=== PATIENT | male | born 1965 | race Caucasian/White ===

== ENCOUNTER 2017-08-17 08:35 | Emergency (ER) | payer MEDICAID ==
[2017-08-17 08:35] VITALS: BMI 29.1
[2017-08-17 08:43] VITALS: TEMP 97.9
--- NOTE | 2017-08-17 09:01 | ED PDOC ---
Arrival/HPI - General Chief Complaint: Back Pain Time Seen by Provider: 08/17/17 08:52 Historian: Patient - History of Present Illness Narrative History of Present Illness (Text): 08/17/17 09:00 Aquiles Bravo is a 52 year old male, who presents to the emergency department complaining of right upper back pain since three days ago. Patient reports pain is sharp and worse when taking deep breaths. 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 Patient denies chest pain, shortness of breath, nausea, vomiting, fever, dysuria, or other complaints. Time/Duration: < week (3 days) Symptom Onset: Sudden Symptom Course: Unchanged Quality: Other (sharp) Activities at Onset: Light Past Medical History - Provider Review Nursing Documentation Reviewed: Yes - Psychiatric Hx Depression: No Hx Emotional Abuse: No Hx Physical Abuse: No Hx Substance Use: No - Surgical History Hx Musculoskeletal Surgery: Yes (right knee) - Suicidal Assessment Feels Threatened In Home Enviroment: No Family/Social History - Physician Review Nursing Documentation Reviewed: Yes Family/Social History: Unknown Family HX Smoking Status: Heavy Smoker > 10 Cigarettes Daily Hx Alcohol Use: Yes (occassionally) Frequency of alcohol use: Socially Hx Substance Use: No Hx Substance Use Treatment: No Allergies/Home Meds Allergies/Adverse Reactions: Allergies No Known Allergies Allergy (Verified 08/17/17 08:43) Review of Systems - Review of Systems Constitutional: absent: Fevers Respiratory: absent: SOB Cardiovascular: absent: Chest Pain Gastrointestinal: absent: Abdominal Pain, Vomiting Genitourinary Male: absent: Dysuria Musculoskeletal: Back Pain (right upper back ) Skin: absent: Rash Neurological: absent: Headache Physical Exam Vital Signs Reviewed: Yes Vital Signs Temp Pulse Resp BP Pulse Ox 08/17/17 10:36 72 18 127/78 98 08/17/17 09:46 65 17 130/80 98 08/17/17 08:43 97.9 F 62 18 128/78 97 Temperature: Afebrile Blood Pressure: Normal Pulse: Regular Respiratory Rate: Normal Appearance: Positive for: Well-Appearing, Non-Toxic, Comfortable Pain Distress: None Mental Status: Positive for: Alert and Oriented X 3 - Systems Exam Head: Present: Atraumatic, Normocephalic Pupils: Present: PERRL Extroacular Muscles: Present: EOMI Conjunctiva: Present: Normal Mouth: Present: Moist Mucous Membranes Neck: Present: Normal Range of Motion. No: MIDLINE TENDERNESS, Paraspinal Tenderness Respiratory/Chest: Present: Clear to Auscultation, Good Air Exchange. No: Respiratory Distress, Accessory Muscle Use, Wheezes, Rales, Retracting, Rhonchi Cardiovascular: Present: Regular Rate and Rhythm, Normal S1, S2. No: Murmurs Back: Present: Paraspinal Tenderness (right sided parathoracic tenderness) Upper Extremity: Present: Normal Inspection, Normal ROM, NORMAL PULSES, Neurovascularly Intact, Capillary Refill < 2s. No: Cyanosis, Edema, Tenderness , Swelling, Erythema, Deformity Neurological: Present: GCS=15, CN II-XII Intact, Speech Normal Skin: Present: Warm, Dry, Normal Color. No: Rashes Psychiatric: Present: Alert, Oriented x 3, Normal Insight, Normal Concentration Medical Decision Making ED Course and Treatment: 08/17/17 Impression: 52 year old male with right sided parathoracic tenderness complaining of sharp right upper back pain. pleuritc complonent consider msk pain vs pe. Plan: -- Labs -- Toradol -- Reassess and disposition Progress Notes: 08/17/17 09:55 Chest X-ray: Creator : Lane Zapata MD FINDINGS: LUNGS: No active pulmonary disease. PLEURA: No significant pleural effusion identified. No pneumothorax apparent. CARDIOVASCULAR: Normal. OSSEOUS STRUCTURES: No significant abnormalities. VISUALIZED UPPER ABDOMEN: Normal. OTHER FINDINGS: None. IMPRESSION: No active disease. 08/17/17 13:51 labs cxr neg. pt speaking full sentences lung clear. no res distresss. advise outpt fu and return precautions. - Lab Interpretations Lab Results: 08/17/17 09:10 08/17/17 09:10 Lab Results 08/17/17 09:10: Sodium 144, Potassium 4.8, Chloride 106, Carbon Dioxide 27, Anion Gap 15, BUN 16, Creatinine 0.8, Est GFR ( Amer) > 60, Est GFR (Non- Af Amer) > 60, Random Glucose 113 H, Calcium 9.9, Total Bilirubin 0.5, AST 38, ALT 50, Alkaline Phosphatase 87, Total Protein 7.3, Albumin 4.3, Globulin 3.0, Albumin/Globulin Ratio 1.4 08/17/17 09:10: PT 11.1, INR 0.97, APTT 32.1, D-Dimer, Quantitative < 200 08/17/17 09:10: WBC 10.7, RBC 4.82, Hgb 15.2, Hct 45.1, MCV 93.6, MCH 31.5, MCHC 33.7, RDW 13.7, Plt Count 240, MPV 11.5 H, Gran % 55.2, Lymph % (Auto) 30.6 , [place] % (Auto) 10.4 H, Eos % (Auto) 3.5, Baso % (Auto) 0.3, Gran # 5.92, Lymph # (Auto) 3.3, [place] # (Auto) 1.1 H, Eos # (Auto) 0.4, Baso # (Auto) 0.03 I have reviewed the lab results: Yes - RAD Interpretation Radiology Orders: 08/17/17 09:01 CXR [CHEST TWO VIEWS (PA/LAT)] [RAD] Stat Diamond Finishing Supervisor: Radiologist - Medication Orders Current Medication Orders: Discontinued Medications Ketorolac Tromethamine (Toradol) 30 mg IVP STAT STA Stop: 08/17/17 09:01 Last Admin: 08/17/17 09:52 Dose: 30 mg [facility] Pain Assessment Document 08/17/17 09:52 SF (Rec: 08/17/17 09:52 [id number]) Pain Reassessment Is this a pain reassessment? Yes Sleep Is patient sleeping during reassessment? No Presence of Pain Presence of Pain Yes Pain Scale Used Pain Scale Used Numeric IVP Administration Document 08/17/17 09:52 SF (Rec: 08/17/17 09:52 [id number]) Charges for Administration # of IVP Administrations 1 - Scribe Statement The provider has reviewed the documentation as recorded by the Annabella Farley Provider Scribe Attestation: All medical record entries made by the Scribe were at my direction and personally dictated by me. I have reviewed the chart and agree that the record accurately reflects my personal performance of the history, physical exam, medical decision making, and the department course for this patient. I have also personally directed, reviewed, and agree with the discharge instructions and disposition. Disposition/Present on Arrival - Present on Arrival Any Indicators Present on Arrival: No History of DVT/PE: No History of Uncontrolled Diabetes: No Urinary Catheter: No History of Decub. Ulcer: No History Surgical Site Infection Following: None - Disposition Have Diagnosis and Disposition been Completed?: Yes Diagnosis: Back pain Disposition: HOME/ ROUTINE Disposition Time: 10:00 Condition: STABLE Discharge Instructions (ExitCare): Upper Back Pain Additional Instructions: follow up with your doctor/specialist. return to e rwith worsening symptoms or concerns. Prescriptions: Cyclobenzaprine [Cyclobenzaprine HCl] 10 mg PO DAILY PRN #10 tab PRN Reason: Muscle Spasm Naproxen [Naprosyn] 500 mg PO BID PRN #14 tablet PRN Reason: Pain, Mild (1-3) Referrals: [facility], [Non-Staff] - Follow up with primary Visco,Sergei Celeste MD [Staff Provider] - Follow up with primary Forms: [employer] ([place]i), WORK NOTE
[2017-08-17 09:22] LABS: BASO # 0.03 K/mm3 (0.0-2.0); BASO % 0.3 % (0.0-3.0); EOS # 0.4 (0.0-0.7); EOS % 3.5 % (1.5-5.0); GRAN # 5.92 (1.4-6.5); GRAN % 55.2 % (50.0-68.0); HEMOGLOBIN 15.2 g/dL (14.0-18.0); LYMPH # 3.3 (1.2-3.4); LYMPH % 30.6 % (22.0-35.0); MEAN CELL VOLUME 93.6 fl (80.0-105.0); MEAN CORPUSCULAR HEMOGLOBIN 31.5 pg (25.0-35.0); MEAN CORPUSCULAR HGB CONC 33.7 g/dl (31.0-37.0); MEAN PLATELET VOLUME 11.5 fl (7.0-11.0); MONO # 1.1 (0.1-0.6); MONO % 10.4 % (1.0-6.0); RBC 4.82 10^6/uL (3.5-6.1); RED CELL DISTRIBUTION WIDTH 13.7 % (11.5-14.5); WHITE BLOOD COUNT 10.7 10^3/ul (4.5-11.0)
[2017-08-17 09:33] LABS: ALB/GLOB RATIO 1.4 (1.1-1.8); ALBUMIN 4.3 g/dL (3.0-4.8); ALT/SGPT 50 U/L (7-56); AST/SGOT 38 U/L (17-59); BLOOD UREA NITROGEN 16 mg/dL (7-21); CALCIUM 9.9 mg/dL (8.4-10.5); GFR AFRICAN-AMERICAN > 60; GFR NON-AFRICAN AMERICAN > 60
[2017-08-17 09:49] LABS: D DIMER < 200 ng/mL (0-243); INR 0.97 (0.93-1.08); PARTIAL THROMBOPLASTIN TIME 32.1 Seconds (25.1-36.5); PROTHROMBIN TIME 11.1 SECONDS (9.4-12.5)
[2017-08-17 09:51] VITALS: O2SAT 98
--- NOTE | 2017-08-17 09:56 | RAD ---
HISTORY: right sided pain COMPARISON: No prior. TECHNIQUE: Chest PA and lateral FINDINGS: LUNGS: No active pulmonary disease. PLEURA: No significant pleural effusion identified. No pneumothorax apparent. CARDIOVASCULAR: Normal. OSSEOUS STRUCTURES: No significant abnormalities. VISUALIZED UPPER ABDOMEN: Normal. OTHER FINDINGS: None. IMPRESSION: No active disease.
[2017-08-17 10:40] VITALS: BP 127/78; PULSE 72; RESP 18
== END 2017-08-17 10:38 | disposition home or self-care (01) ==
LOC: ED 08:35
DX: M54.6 Pain in thoracic spine (principal); F17.210 Nicotine dependence, cigarettes, uncomplicated
CPT/HCPCS: 71046; 80053; 85025; 85378; 85610; 85730; 96374; 99285; J1885

== ENCOUNTER 2018-07-13 08:18 | Observation (INO) | payer MEDICAID, OTHER ==
[2018-07-13 08:19] VITALS: BMI 27.9
[2018-07-13] MEDS ORDERED: Nitroglycerin 2% Ointment Foilpak UD TOP STA (08:23)
--- NOTE | 2018-07-13 08:25 | ED PDOC ---
Arrival/HPI - General Time Seen by Provider: 07/13/18 08:22 Historian: Patient - History of Present Illness Narrative History of Present Illness (Text): 07/13/18 08:23 Aquiles Bravo is a 53 year old male, whose past medical history includes questionable asthma, who presents to the Emergency department complaining of sudden onset of chest pain. Patient states he woke up this morning feeling increasingly dizzy with chest pain. Patient states pain is non-radiating and describes pain as a constant pressure. Patient also complaining of shortness of breath. Patient denies any recent history of travel, recent surgery, abdominal pain, back pain, neck pain, extremity pain, nausea, vomiting, or any other complaints. PMD: Dr. Still Symptom Onset: Gradual Symptom Course: Unchanged Activities at Onset: Light Context: Home Past Medical History - Provider Review Nursing Documentation Reviewed: Yes - Psychiatric Hx Depression: No Hx Emotional Abuse: No Hx Physical Abuse: No Hx Substance Use: No - Surgical History Hx Musculoskeletal Surgery: Yes (right knee) - Suicidal Assessment Feels Threatened In Home Enviroment: No Family/Social History - Physician Review Nursing Documentation Reviewed: Yes Family/Social History: Unknown Family HX Smoking Status: Heavy Smoker > 10 Cigarettes Daily Hx Alcohol Use: Yes (occassionally) Hx Substance Use: No Hx Substance Use Treatment: No Allergies/Home Meds Allergies/Adverse Reactions: Allergies No Known Allergies Allergy (Verified 08/17/17 08:43) Home Medications: Home Meds Medication Instructions Recorded Confirmed No Known Home Med 07/13/18 07/13/18 Review of Systems - Physician Review All systems were reviewed & negative as marked: Yes - Review of Systems Constitutional: Normal. absent: Fevers Eyes: Normal ENT: Normal Respiratory: SOB Cardiovascular: Chest Pain Gastrointestinal: Normal. absent: Abdominal Pain, Diarrhea, Nausea, Vomiting Genitourinary Male: Normal. absent: Dysuria, Frequency, Hematuria, Urinary Output Changes Musculoskeletal: Normal. absent: Back Pain, Neck Pain Skin: Normal. absent: Rash Neurological: Dizziness. absent: Headache Endocrine: Normal Hemo/Lymphatic: Normal Psychiatric: Normal Physical Exam Vital Signs Reviewed: Yes Temperature: Afebrile Blood Pressure: Normal Pulse: Regular Respiratory Rate: Normal Appearance: Positive for: Uncomfortable Pain Distress: Moderate Mental Status: Positive for: Alert and Oriented X 3 - Systems Exam Head: Present: Atraumatic, Normocephalic Pupils: Present: PERRL Extroacular Muscles: Present: EOMI Conjunctiva: Present: Normal Mouth: Present: Moist Mucous Membranes Neck: Present: Normal Range of Motion Respiratory/Chest: Present: Clear to Auscultation, Good Air Exchange. No: Respiratory Distress, Accessory Muscle Use Cardiovascular: Present: Regular Rate and Rhythm, Normal S1, S2. No: Murmurs Abdomen: No: Tenderness, Distention, Peritoneal Signs Back: Present: Normal Inspection Upper Extremity: Present: Normal Inspection. No: Cyanosis, Edema Lower Extremity: Present: Normal Inspection. No: Edema Neurological: Present: GCS=15, CN II-XII Intact, Speech Normal Skin: Present: Warm, Dry, Normal Color. No: Rashes Psychiatric: Present: Alert, Oriented x 3, Normal Insight, Normal Concentration Medical Decision Making ED Course and Treatment: 07/13/18 08:23 Impression: 53 year old male presents for chest pain, shortness of breath, and dizziness. Differential Diagnosis included but are not limited to: chest pain r/o ACS vs low probability for PE vs pneumonia Plan: -- EKG -- Chest X-ray -- Labs, cardiac enzymes, BNP, D-dimer -- Urinalysis -- Aspirin -- Nitroglycerin -- Reassess and disposition Prior Visits: Notes and results from previous visits were reviewed. Progress Notes: Pt seen on arrival to Emergency department. Reviewed EKG, sinus arrhythmia at 73 bpm. RBBB. 07/13/18 08:43 On reevaluation, pt appears more comfortable, not in any acute distress. Pain resolved after nitro paste and aspirin. 07/13/18 09:30 Labs reviewed, negative troponin, negative D-dimer. Case discussed with Dr. Still, who requests pt go to the hospitalist service. Case discussed with Dr. Sanchez, medical orderly, who is aware and agrees with plan. 07/13/18 10:[address] Mendoza, hospitalist, who accepts pt under the hospitalist service. Pt will go to Telemetry observation for chest pain. 07/13/18 10:[address] Saunders, Cardiology. - Critical Care Critical Care Minutes: 30 minutes - EKG Interpretation Interpreted by ED Physician: Yes Type: 12 lead EKG - Scribe Statement The provider has reviewed the documentation as recorded by the Scribe Aylin Rodneyn Provider Scribe Attestation: All medical record entries made by the Scribe were at my direction and personally dictated by me. I have reviewed the chart and agree that the record accurately reflects my personal performance of the history, physical exam, medical decision making, and the department course for this patient. I have also personally directed, reviewed, and agree with the discharge instructions and disposition. Disposition/Present on Arrival - Present on Arrival Any Indicators Present on Arrival: No History of DVT/PE: No History of Uncontrolled Diabetes: No Urinary Catheter: No History Surgical Site Infection Following: None - Disposition Have Diagnosis and Disposition been Completed?: Yes Diagnosis: Chest pain Disposition Time: 09:30 Patient Plan: Observation Condition: FAIR Discharge Instructions (ExitCare): Chest Pain (ED) Referrals: Eli Still MD [Primary Care Provider] - Follow up with primary
[2018-07-13 08:38] LABS: BASO # 0.04 K/mm3 (0.0-2.0); BASO % 0.3 % (0.0-3.0); EOS # 0.5 (0.0-0.7); EOS % 3.7 % (1.5-5.0); GRAN # 6.2 (1.4-6.5); GRAN % 48.5 % (50.0-68.0); HEMOGLOBIN 15.9 g/dL (14.0-18.0); LYMPH # 4.8 (1.2-3.4); LYMPH % 37.6 % (22.0-35.0); MEAN CORPUSCULAR HEMOGLOBIN 31.2 pg (25.0-35.0); MEAN CORPUSCULAR HGB CONC 34.3 g/dl (31.0-37.0); MEAN PLATELET VOLUME 11.2 fl (7.0-11.0); MONO # 1.3 (0.1-0.6); MONO % 9.9 % (1.0-6.0); RBC 5.1 10^6/uL (3.5-6.1); RED CELL DISTRIBUTION WIDTH 13.3 % (11.5-14.5); WHITE BLOOD COUNT 12.8 10^3/uL (4.5-11.0)
[2018-07-13 08:47] LABS: ALB/GLOB RATIO 1.4 (1.1-1.8); ALBUMIN 4.8 g/dL (3.0-4.8); ALT/SGPT 43 U/L (7-56); AST/SGOT 38 U/L (17-59); BLOOD UREA NITROGEN 13 mg/dL (7-21); CALCIUM 10.1 mg/dL (8.4-10.5); GFR NON-AFRICAN AMERICAN > 60
[2018-07-13 08:55] LABS: PH,URINE 7.5 (4.7-8.0); URINE APPEARANCE CLEAR (CLEAR); URINE BILIRUBIN NEGATIVE (NEGATIVE); URINE BLOOD NEGATIVE (NEGATIVE); URINE COLOR YELLOW (YELLOW); URINE GLUCOSE (UA) NEGATIVE (NEGATIVE); URINE LEUKOCYTE ESTERASE NEGATIVE Leu/uL (NEGATIVE); URINE PROTEIN NEGATIVE mg/dL (<30 mg/dL); URINE UROBILINOGEN 0.2 E.U./dL (<1 E.U./dL)
[2018-07-13 08:55] LABS: INR 0.96; PARTIAL THROMBOPLASTIN TIME 29.3 Seconds (25.1-36.5)
[2018-07-13 08:59] LABS: B-TYPE NATRIURETIC PEPTIDE 48.5 pg/mL (0-450); TROPONIN I < 0.01 ng/mL
[2018-07-13 09:02] LABS: D DIMER < 200 ng/mlDDU (0-243)
[2018-07-13 09:23] VITALS: O2SAT 100
--- NOTE | 2018-07-13 10:31 | CP.PCM.HP ---
<Mathieu Christianson - Last Filed: 07/13/18 17:37> History of Present Illness - History of Present Illness History of Present Illness: Medicine H/P: Sammy, PGY - 2 Chief Complaint: Chest pain HPI: 53 M with pertinent medical history of smoking, presents with acute onset of pressure-like, 10/10, left sided chest pain radiating to both arms and associated with dizziness and shortness of breath since 5:30A, unalleviated by Tylenol this morning. Patient states that he has never had pain like this before, and denies any cardiac work up in the past, including cardiac cath, stress testing, and echocardiogram. 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 He states that he even had to take a tramadol for his back at the end of the two days. Patient denied diaphoresis, nausea, vomiting, and other GI symptoms. ED course had EKG with RBBB (no prior to compare), Negative troponin, Dose of ASA, and Nitro patch. Review of Systems: 12 point ROS obtained, and negative except as per HPI Surgical History: Meniscal repair of right knee many years ago Medical History: Mild intermittent Asthma, Arthritic knees bilaterally Allergies: NKDA Soc Hx: 2 packs tobacco/per week, well over 35 years; Denies illicits, ETOH Home Meds: Inhaler, used to take Meloxicam but no longer does, Occasional Tramadol from his for back pain Fam Hx: Maternal - HTN, Asthma, DM; Paternal - Epilepsy, DM, HLD. No cardiac history PMD: Dr. Still Present on Admission - Present on Admission Any Indicators Present on Admission: No Past Patient History - Infectious Disease Hx of Infectious Diseases: None - Past Social History Smoking Status: Heavy Smoker > 10 Cigarettes Daily - MUSCULOSKELETAL/RHEUMATOLOGICAL Hx Arthritis: Yes - PSYCHIATRIC Hx Depression: No Hx Emotional Abuse: No Hx Physical Abuse: No Hx Substance Use: No - SURGICAL HISTORY Hx Musculoskeletal Surgery: Yes (right knee) Meds Allergies/Adverse Reactions: Allergies Allergy/AdvReac Type Severity Reaction Status Date / Time No Known Allergies Allergy Verified 08/17/17 08:43 Physical Exam - Constitutional Appears: Well - Head Exam Head Exam: ATRAUMATIC, NORMAL INSPECTION, NORMOCEPHALIC - Eye Exam Eye Exam: EOMI, Normal appearance, PERRL Pupil Exam: NORMAL ACCOMODATION, PERRL - ENT Exam ENT Exam: Mucous Membranes Moist, Normal Exam - Neck Exam Neck exam: Positive for: Normal Inspection - Respiratory Exam Respiratory Exam: Clear to Auscultation Bilateral, NORMAL BREATHING PATTERN - Cardiovascular Exam Cardiovascular Exam: REGULAR RHYTHM Additional comments: Chest tenderness to palpation - GI/Abdominal Exam GI & Abdominal Exam: Normal Bowel Sounds, Soft. absent: Tenderness - Extremities Exam Extremities exam: Positive for: normal inspection - Back Exam Back exam: NORMAL INSPECTION - Neurological Exam Neurological exam: Alert, CN II-XII Intact, Normal Gait, Oriented x3, Reflexes Normal - Psychiatric Exam Psychiatric exam: Normal Affect, Normal Mood - Skin Skin Exam: Dry, Intact, Normal Color, Warm Results - Vital Signs Recent Vital Signs: Last Vital Signs Temp 97.4 F L 07/13/18 08:24 Pulse 66 07/13/18 09:20 Resp 18 07/13/18 09:20 BP 114/74 07/13/18 09:20 Pulse Ox 100 07/13/18 09:20 - Labs Result Diagrams: 07/13/18 08:30 07/13/18 08:30 Labs: Laboratory Results - last 24 hr 07/13/18 07/13/18 07/13/18 08:30 08:30 08:30 WBC 12.8 H RBC 5.10 Hgb 15.9 Hct 46.4 MCV 91.0 MCH 31.2 MCHC 34.3 RDW 13.3 Plt Count 276 MPV 11.2 H Gran % 48.5 L Lymph % (Auto) 37.6 H [place] % (Auto) 9.9 H Eos % (Auto) 3.7 Baso % (Auto) 0.3 Gran # 6.20 Lymph # (Auto) 4.8 H [place] # (Auto) 1.3 H Eos # (Auto) 0.5 Baso # (Auto) 0.04 PT 11.0 INR 0.96 APTT 29.3 D-Dimer, Quantitative < 200 Sodium 138 Potassium 4.0 Chloride 102 Carbon Dioxide 24 Anion Gap 17 BUN 13 Creatinine 0.8 Est GFR ( Amer) > 60 Est GFR (Non-Af Amer) > 60 Random Glucose 129 H Calcium 10.1 Magnesium 2.0 Total Bilirubin 0.7 AST 38 ALT 43 Alkaline Phosphatase 111 Lactate Dehydrogenase 484 Total Creatine Kinase 154 Troponin I < 0.01 NT-Pro-B Natriuret Pep 48.5 Total Protein 8.1 Albumin 4.8 Globulin 3.3 Albumin/Globulin Ratio 1.4 Urine Color Urine Appearance Urine pH Ur Specific [place] Urine Protein Urine Glucose (UA) Urine Ketones Urine Blood Urine Nitrate Urine Bilirubin Urine Urobilinogen Ur Leukocyte Esterase 07/13/18 08:45 WBC RBC Hgb Hct MCV MCH MCHC RDW Plt Count MPV Gran % Lymph % (Auto) [place] % (Auto) Eos % (Auto) Baso % (Auto) Gran # Lymph # (Auto) [place] # (Auto) Eos # (Auto) Baso # (Auto) PT INR APTT D-Dimer, Quantitative Sodium Potassium Chloride Carbon Dioxide Anion Gap BUN Creatinine Est GFR ( Amer) Est GFR (Non-Af Amer) Random Glucose Calcium Magnesium Total Bilirubin AST ALT Alkaline Phosphatase Lactate Dehydrogenase Total Creatine Kinase Troponin I NT-Pro-B Natriuret Pep Total Protein Albumin Globulin Albumin/Globulin Ratio Urine Color Yellow Urine Appearance Clear Urine pH 7.5 Ur Specific [place] 1.015 Urine Protein Negative Urine Glucose (UA) Negative Urine Ketones Negative Urine Blood Negative Urine Nitrate Negative Urine Bilirubin Negative Urine Urobilinogen 0.2 Ur Leukocyte Esterase Negative Assessment & Plan - Assessment and Plan (Free Text) Assessment: 53 year old male with pertinent medical history of smoking presents for evaluation of chest pain. Patient has two risk factors for cardiac disease, smoking and family history of HTN. In addition, EKG shows RBBB, but there is no previous EKG to compare. However, pain is reproducible with palpation, both in chest and in bilateral arms. ASCVD cannot be calculated until lipid panel results. JACKI Score is 0. Plan Chest Pain, r/o ACS, likely 2/2 Musculoskeletal Pain - Trending troponins, ekg - A1C, TSH; Lipid panel and calculate ASCVD score - AM labs with Mg and Phos - Toradol for Pain PRN - Daily ASA Mild Intermittent Asthma - Continue home inhaler PRN Tobacco Abuse - Advised cessation at length PPx - Protonix, SCD <Benita Alston R - Last Filed: 07/13/18 18:41> Results - Vital Signs Recent Vital Signs: Last Vital Signs Temp 98.1 F 07/13/18 18:00 Pulse 76 07/13/18 18:00 Resp 21 07/13/18 18:00 BP 125/86 07/13/18 18:00 Pulse Ox 100 07/13/18 16:40 - Labs Result Diagrams: 07/13/18 08:30 07/13/18 08:30 Labs: Laboratory Results - last 24 hr 07/13/18 07/13/18 07/13/18 08:30 08:30 08:30 WBC 12.8 H RBC 5.10 Hgb 15.9 Hct 46.4 MCV 91.0 MCH 31.2 MCHC 34.3 RDW 13.3 Plt Count 276 MPV 11.2 H Gran % 48.5 L Lymph % (Auto) 37.6 H [place] % (Auto) 9.9 H Eos % (Auto) 3.7 Baso % (Auto) 0.3 Gran # 6.20 Lymph # (Auto) 4.8 H [place] # (Auto) 1.3 H Eos # (Auto) 0.5 Baso # (Auto) 0.04 PT 11.0 INR 0.96 APTT 29.3 D-Dimer, Quantitative < 200 Sodium 138 Potassium 4.0 Chloride 102 Carbon Dioxide 24 Anion Gap 17 BUN 13 Creatinine 0.8 Est GFR ( Amer) > 60 Est GFR (Non-Af Amer) > 60 Random Glucose 129 H Calcium 10.1 Magnesium 2.0 Total Bilirubin 0.7 AST 38 ALT 43 Alkaline Phosphatase 111 Lactate Dehydrogenase 484 Total Creatine Kinase 154 Troponin I < 0.01 NT-Pro-B Natriuret Pep 48.5 Total Protein 8.1 Albumin 4.8 Globulin 3.3 Albumin/Globulin Ratio 1.4 Urine Color Urine Appearance Urine pH Ur Specific [place] Urine Protein Urine Glucose (UA) Urine Ketones Urine Blood Urine Nitrate Urine Bilirubin Urine Urobilinogen Ur Leukocyte Esterase Urine Opiates Screen Urine Methadone Screen Ur Barbiturates Screen Ur Phencyclidine Scrn Ur Amphetamines Screen U Benzodiazepines Scrn U Oth Cocaine Metabols U Cannabinoids Screen 07/13/18 07/13/18 07/13/18 08:45 12:18 15:10 WBC RBC Hgb Hct MCV MCH MCHC RDW Plt Count MPV Gran % Lymph % (Auto) [place] % (Auto) Eos % (Auto) Baso % (Auto) Gran # Lymph # (Auto) [place] # (Auto) Eos # (Auto) Baso # (Auto) PT INR APTT D-Dimer, Quantitative Sodium Potassium Chloride Carbon Dioxide Anion Gap BUN Creatinine Est GFR ( Amer) Est GFR (Non-Af Amer) Random Glucose Calcium Magnesium Total Bilirubin AST ALT Alkaline Phosphatase Lactate Dehydrogenase Total Creatine Kinase Troponin I < 0.01 NT-Pro-B Natriuret Pep Total Protein Albumin Globulin Albumin/Globulin Ratio Urine Color Yellow Urine Appearance Clear Urine pH 7.5 Ur Specific [place] 1.015 Urine Protein Negative Urine Glucose (UA) Negative Urine Ketones Negative Urine Blood Negative Urine Nitrate Negative Urine Bilirubin Negative Urine Urobilinogen 0.2 Ur Leukocyte Esterase Negative Urine Opiates Screen Negative Urine Methadone Screen Negative Ur Barbiturates Screen Negative Ur Phencyclidine Scrn Negative Ur Amphetamines Screen Negative U Benzodiazepines Scrn Negative U Oth Cocaine Metabols Negative U Cannabinoids Screen Negative Attending/Attestation - Attestation I have personally seen and examined this patient.: Yes I have fully participated in the care of the patient.: Yes I have reviewed all pertinent clinical information: Yes Notes (Text): Patient seen and examined by me with resident at 12:00PM on 07/13/18 in the emergency room.. Case including HPI, physical exam, and assessment and plan discussed with resident. Agree with above with following additions/corrections. Patient is a 53-year-old male with past medical history significant for mild intermittent asthma, tobacco abuse, and bilateral knee arthritis and presents to the emergency room with chest pain. Patient states that when he woke up this morning he felt a little dizzy and had a headache. He then felt a little anxious. He made coffee and gotten his car to drive to work. I'll he was driving he started to feel pressure across his chest with shortness of breath. So patient came to the emergency room. Patient states that the pain is pressure- like and is across his entire chest. Pain radiates below left breast. Patient tried Tylenol at home with no relief. Patient states "my chest felt like it was on fire." Patient states on a scale of 1-10, 10 being the worst pain he has ever felt, the pain was a 10. He shouldn't states that in the emergency room after receiving nitroglycerin, the pain is a 2 out of 10. Patient states this is the first time this has happened. No diaphoresis. Patient denies any nausea, vomiting, or abdominal pain. No current headache or dizziness. No lightheadedness. No fevers or chills. No palpitations. No dysuria. No diarrhea or constipation. Patient does have chronic bilateral knee pain secondary to arthritis. Patient is a [employer] worker and does heavy lifting every day. 12 point review of systems reviewed by me. Please see above HPI, all other systems negative. Family History: Mother is alive and has asthma. Father and had epilepsy Social history. Lives with . Works for [employer]. Occasional alcohol use. Smokes 2 packs of cigarettes every week Physical exam: General: Awake and alert lying in bed in no acute distress HEENT: Normocephalic, atraumatic. Extraocular muscles intact, pupils equal and reactive, no scleral icterus. Oropharynx is pink and moist. No pharyngeal erythema or exudate appreciated. Ears and nose externally unremarkable. Neck is supple. Cardiovascular: Normal rhythm. Normal S1 and S2. No murmurs, rubs, or gallops appreciated Pulmonary: Normal respiratory effort. No rhonchi, rales, or wheezing appreciated. Gastrointestinal: Soft, nondistended. Nontender. Positive bowel sounds all 4 quadrants. No guarding. Musculoskeletal: Moves all extremities. No calf tenderness. No edema appreciated. Positive anterior left sided chest wall tenderness. Central nervous system: AAOx3. CN 2-12 grossly intact. Dermatologic: Skin warm and dry. Assessment and plan: Patient is a 53-year-old male with past medical history significant for mild intermittent asthma, tobacco abuse, and bilateral knee arthritis and presents to the emergency room with chest pain. 1. Chest pain. Rule out ACS. First troponin within normal limits. Follow up serial troponins. Follow up TSH, Lipid panel, HgbA1C. Cardiology consulted, follow up recommendations. Placed on ASA. Chest xray as read by me shows no active disease. Monitor on telemetry 2. Tobacco abuse. Patient counseled at length on cessation 3. Bilateral knee arthritis. No acute issues 4. Mild intermittent asthma. Not in exacerbation. No acute issues. 5. Patient is a full code. Case was discussed in detail with the patient and patient's at bedside regarding current diagnosis and treatment plan. All questions answered.
--- NOTE | 2018-07-13 10:46 | RAD ---
Date of service: 07/13/2018 HISTORY: chest pain COMPARISON: 08/17/2017 FINDINGS: LUNGS: No active pulmonary disease. PLEURA: No significant pleural effusion identified, no pneumothorax apparent. CARDIOVASCULAR: No aortic atherosclerotic calcification present. Normal cardiac size. No pulmonary vascular congestion. OSSEOUS STRUCTURES: No significant abnormalities. VISUALIZED UPPER ABDOMEN: Normal. OTHER FINDINGS: None. IMPRESSION: No active disease.
[2018-07-13 13:04] LABS: BARBITURATES, UR NEGATIVE (NEGATIVE); BENZODIAZEPINES, UR NEGATIVE (NEGATIVE); OPIATES, UR NEGATIVE (NEGATIVE); PHENCYCLIDINE, UR NEGATIVE (NEGATIVE)
--- NOTE | 2018-07-13 13:18 | CARD ---
APPROVED REPORT Date of service: 07/13/2018 EKG Measurement Heart [id number] CO [id number] <Conclusion> Normal sinus rhythm with sinus arrhythmia Normal ECG
[2018-07-13] MEDS ORDERED: Enoxaparin 80 mg Syringe SC STA ×2 (14:40→16:44)
--- NOTE | 2018-07-13 18:46 | CON ---
DATE: 07/13/2018 CARDIOLOGY CONSULTATION HISTORY: The patient is a 53-year-old male, who presents with substernal chest discomfort this morning described as intermittent pressure as well as musculoskeletal in nature. The patient works with [email or web address] and carries many boxes. The patient has no cardiac history except for years of smoking. No family history. No hypertension. No or diabetes mellitus. No previous cardiac history. SOCIAL HISTORY: He is an active smoker. REVIEW OF SYSTEMS: Fourteen-point review of systems is reviewed in detail. No dyspnea. No edema. No peptic ulcer disease. No bleeding history in the past. PHYSICAL EXAMINATION: GENERAL: The patient is in no acute distress. VITAL SIGNS: Vital signs are stable. NECK: Negative JVD. LUNGS: Without rales. HEART: With S1, S2. EXTREMITIES: Without edema. EKG is unremarkable. LABORATORY DATA: Laboratories includes hemoglobin of 15.9. Chemistries: BUN and creatinine unremarkable. Glucose is 129. The troponin is negative so far. IMPRESSION: 1. New-onset chest pain. 2. So far troponins are negative with a normal EKG. 3. Questionable chronic obstructive pulmonary disease. 4. Nicotine addiction. 5. Borderline diabetes mellitus. Given these findings, we will obtain serial troponins. We will begin the patient on a daily aspirin. If the troponins are negative, we will proceed to a stress test in the morning. I have discussed with the patient about his need to stop smoking. He understands and is agreeable to make whatever efforts are necessary to do that. Hema Saunders MD
[2018-07-13] MEDS ORDERED: Influenza Vaccine 60 mcg/0.5 mL SYR (4YR UP) IM ONE (22:05)
[2018-07-13] MEDS ORDERED: Pneumococcal 23-Valent Vaccine IM ONE (22:05)
[2018-07-14] MEDS ORDERED: Pantoprazole 40 mg EC Tab PO SCH (06:00)
[2018-07-14 06:59] LABS: TROPONIN I < 0.01 ng/mL
[2018-07-14 07:00] LABS: LDL CHOLESTEROL 108 mg/dL (0-129)
[2018-07-14 07:08] LABS: BASO # 0.04 K/mm3 (0.0-2.0); BASO % 0.4 % (0.0-3.0); EOS # 0.5 (0.0-0.7); EOS % 5.2 % (1.5-5.0); GRAN # 5.09 (1.4-6.5); GRAN % 50.5 % (50.0-68.0); HEMOGLOBIN 15.6 g/dL (14.0-18.0); LYMPH # 3.5 (1.2-3.4); LYMPH % 34.3 % (22.0-35.0); MEAN CELL VOLUME 92.6 fl (80.0-105.0); MEAN CORPUSCULAR HEMOGLOBIN 31.1 pg (25.0-35.0); MEAN CORPUSCULAR HGB CONC 33.5 g/dl (31.0-37.0); MEAN PLATELET VOLUME 11.8 fl (7.0-11.0); MONO % 9.6 % (1.0-6.0); RBC 5.02 10^6/uL (3.5-6.1); RED CELL DISTRIBUTION WIDTH 13.7 % (11.5-14.5); WHITE BLOOD COUNT 10.1 10^3/uL (4.5-11.0)
[2018-07-14 07:20] LABS: ALB/GLOB RATIO 1.4 (1.1-1.8); ALBUMIN 4.2 g/dL (3.0-4.8); ALT/SGPT 47 U/L (7-56); AST/SGOT 34 U/L (17-59); BLOOD UREA NITROGEN 16 mg/dL (7-21); CALCIUM 9.5 mg/dL (8.4-10.5); GFR NON-AFRICAN AMERICAN > 60; HDL CHOLESTEROL 36 mg/dL (29-60)
--- NOTE | 2018-07-14 08:28 | CARD ---
APPROVED REPORT Date of service: 07/13/2018 EKG Measurement Heart [id number] [place] [id number] <Conclusion> Sinus bradycardia RVCD
--- NOTE | 2018-07-14 08:31 | CARD ---
APPROVED REPORT Date of service: 07/13/2018 EKG Measurement Heart [id number] MD [id number] [id number] <Conclusion> Sinus bradycardia with premature atrial complexes RVCD
--- NOTE | 2018-07-14 09:39 | PN ---
DATE: 07/14/2018 CARIOLOGY FOLLOWUP SUBJECTIVE: The patient has been pain free since admission. PHYSICAL EXAMINATION: VITAL SIGNS: Blood pressure 107/67, heart rates in the 60s. NECK: Negative JVD. LUNGS: Without rales. HEART: S1, S2. EXTREMITIES: Without edema. LABORATORY DATA: Reveals troponins that are all negative. IMPRESSION: 1. Recurrent chest pain, which is now resolved. 2. No evidence for acute coronary syndrome. 3. Chronic obstructive pulmonary disease. 4. Nicotine addiction. 5. Borderline diabetes mellitus. Given these findings, the patient is no evidence for acute coronary syndrome. His stress test done today, showed no evidence for ischemia. Given these findings, the patient can be discharged from a cardiac perspective. I have discussed with the patient about the need to stop smoking. His exertional dyspnea is likely from COPD. Outpatient followup has been discussed with the patient. Hema Saunders MD
[2018-07-14 12:28] VITALS: BP 106/70; PULSE 81
[2018-07-14 12:40] VITALS: RESP 21; TEMP 98.7
--- NOTE | 2018-07-14 13:14 | CARD ---
APPROVED REPORT Date of service: 07/14/2018 Protocol: ESTER Test Type: Regular Stress Test Attending Physician: Dr. Hema Saunders Referring Physician: Dr. Eli Still Test Indications: Chest Pain Height:5 ft 10 in Weight:195lbs Medications: aspirin, toradol, protonix Medical History: 53 nathan old male with h/o asthma and arthritis Target HR: 168 bpm Resting ECG: normal Resting Heart Rate: 84 bpm Resting Blood Pressure: 108/60mmHg Submaximum (85%): 143 bpm POST EXERCISE Reason for Termination: Fatigue Target HR: No Max HR: 139 bpm 83% of Maximum Predicted HR: 168 bpm Exercise duration: 03:07 min:sec, 3 Stage Exercise capacity: 7.6METs Max Blood Pressure: 120/80mmHg Blood Pressure response to exercise: normal resting BP - appropriate response Heart Rate response to exercise: appropriate Chest Pain: No, none Angina index: 0 Arrhythmia: No, none ST Change: No, none Deviation: 0 mm TEST SUMMARY [id number]:370.00.01.065/.0. [id number]:580.00.01.082/.0. PRETESTHYPERV.00:110.00.01.088/.0. PRETESTWARM-UP09:[id number]/70.0. EXERCISESTAGE 100:511.710.02.596/.0. EXERCISESTAGE 201:232.512.05.5121/.0. EXERCISESTAGE 300:[id number]/70.0. TNDORUUW16:[id number]/76.0. INTERPRETATION Stress EKG Conclusion: No evidence for ischemia Signed by Hema Saunders Electronically Approved: 07/14/2018 10:07:57
--- NOTE | 2018-07-14 15:09 | CP.PCM.DIS ---
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 Core Measures Referral Routine Comment: cp Physician Instructions: Reason For Exam: eval Respiratory Therapy Referral Routine Comment: smoker Physician Instructions: Reason For Exam: eval Transition In Care/Readmission Reduction Routine Comment: cp Physician Instructions: Reason For Exam: eval Time Spent in preparation of Discharge (in minutes): 35 Diagnosis - Discharge Diagnosis (1) Chest pain Status: Acute Priority: High (2) Asthma Status: Chronic Priority: Medium (3) Tobacco abuse Status: Chronic Priority: High Hospital Course - Lab Results Lab Results: Most Recent Lab Values WBC 10.1 10^3/uL (4.5-11.0) D 07/14/18 06:00 RBC 5.02 10^6/uL (3.5-6.1) 07/14/18 06:00 Hgb 15.6 g/dL (14.0-18.0) 07/14/18 06:00 Hct 46.5 % (42.0-52.0) 07/14/18 06:00 MCV 92.6 fl (80.0-105.0) 07/14/18 06:00 MCH 31.1 pg (25.0-35.0) 07/14/18 06:00 MCHC 33.5 g/dl (31.0-37.0) 07/14/18 06:00 RDW 13.7 % (11.5-14.5) 07/14/18 06:00 Plt Count 256 10^3/uL (120.0-450.0) 07/14/18 06:00 MPV 11.8 fl (7.0-11.0) H 07/14/18 06:00 Gran % 50.5 % (50.0-68.0) 07/14/18 06:00 Lymph % (Auto) 34.3 % (22.0-35.0) 07/14/18 06:00 [place] % (Auto) 9.6 % (1.0-6.0) H 07/14/18 06:00 Eos % (Auto) 5.2 % (1.5-5.0) H 07/14/18 06:00 Baso % (Auto) 0.4 % (0.0-3.0) 07/14/18 06:00 Gran # 5.09 (1.4-6.5) 07/14/18 06:00 Lymph # (Auto) 3.5 (1.2-3.4) H 07/14/18 06:00 [place] # (Auto) 1.0 (0.1-0.6) H 07/14/18 06:00 Eos # (Auto) 0.5 (0.0-0.7) 07/14/18 06:00 Baso # (Auto) 0.04 K/mm3 (0.0-2.0) 07/14/18 06:00 PT 11.0 SECONDS (9.4-12.5) 07/13/18 08:30 INR 0.96 07/13/18 08:30 APTT 29.3 Seconds (25.1-36.5) 07/13/18 08:30 D-Dimer, Quantitative < 200 ng/mlDDU (0-243) 07/13/18 08:30 Sodium 139 mmol/L (132-148) 07/14/18 06:00 Potassium 4.4 mmol/L (3.6-5.0) 07/14/18 06:00 Chloride 106 mmol/L (98-107) 07/14/18 06:00 Carbon Dioxide 27 mmol/L (21-33) 07/14/18 06:00 Anion Gap 9 (10-20) L 07/14/18 06:00 BUN 16 mg/dL (7-21) 07/14/18 06:00 Creatinine 0.9 mg/dl (0.8-1.5) 07/14/18 06:00 Est GFR ( Amer) > 60 07/14/18 06:00 Est GFR (Non-Af Amer) > 60 07/14/18 06:00 Random Glucose 109 mg/dL (70-110) 07/14/18 06:00 Hemoglobin A1c 5.8 % (4.2-6.5) 07/13/18 16:00 Calcium 9.5 mg/dL (8.4-10.5) 07/14/18 06:00 Phosphorus 3.3 mg/dL (2.5-4.5) 07/14/18 06:00 Magnesium 2.2 mg/dL (1.7-2.2) 07/14/18 06:00 Total Bilirubin 0.8 mg/dL (0.2-1.3) 07/14/18 06:00 AST 34 U/L (17-59) 07/14/18 06:00 ALT 47 U/L (7-56) 07/14/18 06:00 Alkaline Phosphatase 87 U/L (38-126) 07/14/18 06:00 Lactate Dehydrogenase 484 U/L (333-699) 07/13/18 08:30 Total Creatine Kinase 154 U/L (35-230) 07/13/18 08:30 Troponin I < 0.01 ng/mL 07/14/18 06:00 NT-Pro-B Natriuret Pep 48.5 pg/mL (0-450) 07/13/18 08:30 Total Protein 7.2 g/dL (5.8-8.3) 07/14/18 06:00 Albumin 4.2 g/dL (3.0-4.8) 07/14/18 06:00 Globulin 3.1 gm/dL 07/14/18 06:00 Albumin/Globulin Ratio 1.4 (1.1-1.8) 07/14/18 06:00 Triglycerides 192 mg/dL (35-160) H 07/14/18 06:00 Cholesterol 175 mg/dL (130-200) 07/14/18 06:00 LDL Cholesterol Direct 108 mg/dL (0-129) 07/14/18 06:00 HDL Cholesterol 36 mg/dL (29-60) 07/14/18 06:00 TSH 3rd Generation 1.54 mIU/mL (0.46-4.68) 07/14/18 06:00 Urine Color Yellow (YELLOW) 07/13/18 08:45 Urine Appearance Clear (CLEAR) 07/13/18 08:45 Urine pH 7.5 (4.7-8.0) 07/13/18 08:45 Ur Specific [place] 1.015 (1.005-1.035) 07/13/18 08:45 Urine Protein Negative mg/dL (<30 mg/dL) 07/13/18 08:45 Urine Glucose (UA) Negative mg/dL (NEGATIVE) 07/13/18 08:45 Urine Ketones Negative mg/dL (NEGATIVE) 07/13/18 08:45 Urine Blood Negative (NEGATIVE) 07/13/18 08:45 Urine Nitrate Negative (NEGATIVE) 07/13/18 08:45 Urine Bilirubin Negative (NEGATIVE) 07/13/18 08:45 Urine Urobilinogen 0.2 E.U./dL (<1 E.U./dL) 07/13/18 08:45 Ur Leukocyte Esterase Negative [place]/uL (NEGATIVE) 07/13/18 08:45 Urine Opiates Screen Negative (NEGATIVE) 07/13/18 12:18 Urine Methadone Screen Negative (NEGATIVE) 07/13/18 12:18 Ur Barbiturates Screen Negative (NEGATIVE) 07/13/18 12:18 Ur Phencyclidine Scrn Negative (NEGATIVE) 07/13/18 12:18 Ur Amphetamines Screen Negative (NEGATIVE) 07/13/18 12:18 U Benzodiazepines Scrn Negative (NEGATIVE) 07/13/18 12:18 U Oth Cocaine Metabols Negative (NEGATIVE) 07/13/18 12:18 U Cannabinoids Screen Negative (NEGATIVE) 07/13/18 12:18 - Hospital Course Hospital Course: Upon Arrival Pt is a 53yo male with a PMH of smoking, who presents with acute onset of pressure-like, 10/10, left sided chest pain radiating to both arms and associated with dizziness and shortness of breath since 5:30A, unalleviated by Tylenol this morning. Patient states that he has never had pain like this before, and denies any cardiac work up in the past, including cardiac cath, stress testing, and echocardiogram. 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 Hospitalization During his hospitalization, pt troponins were negative x3. EKG was unremarkable for ischemic changes. HA1C was 5.8. Cardiology was consulted, Dr Saunders. Pt received a cardiac stress test which was negative. Discharge Pt advised to please follow up with Dr. Still within one week of discharge. Pt encouraged smoking cessation. Pulmonary function - please discuss the diagnosis of Chronic Obstructive Pulmonary Disease (COPD), and which sofa cover inspector (lung doctor) you need to follow up with. Advised pt to get pulmonary function tests (PFT's) to get a valid diagnosis. Please discuss lifestyle changes, medication changes, and management with Dr. Still. Please exercise safe practices while doing your physically-intensive job. - Date & Time of H&P Date of H&P: 07/14/18 Time of H&P: 07:00 Discharge Exam - Head Exam Head Exam: ATRAUMATIC, NORMAL INSPECTION, NORMOCEPHALIC - Eye Exam Eye Exam: EOMI - ENT Exam ENT Exam: Mucous Membranes Moist - Respiratory Exam Respiratory Exam: NORMAL BREATHING PATTERN, UNREMARKABLE. absent: Accessory Muscle Use, Respiratory Distress - Cardiovascular Exam Cardiovascular Exam: RRR, +S1, +S2. absent: Diastolic murmur, Systolic Murmur - GI/Abdominal Exam GI & Abdominal Exam: Normal Bowel Sounds, Soft, Unremarkable - Extremities Exam Extremities exam: full ROM, pedal pulses present - Neurological Exam Neurological exam: Oriented x3 - Psychiatric Exam Psychiatric exam: Normal Affect, Normal Mood - Skin Skin Exam: Dry, Intact, Warm Discharge Plan - Follow Up Plan Condition: FAIR Disposition: HOME/ ROUTINE Instructions: Heart Healthy Diet, Chest Pain (DC), Quitting Smoking, Costochondritis (DC), Chest Pain (DC), Chest Pain (GEN) Additional Instructions: Please follow up with Dr. Still within one week of discharge. Please discuss the following with her: 1.) Smoking cessation - ask what options you have to aid you in quitting 2.) Pulmonary function - please discuss the diagnosis of Chronic Obstructive Pulmonary Disease (COPD), and which sofa cover inspector (lung doctor) you need to follow up with. You may have to get pulmonary function tests (PFT's) to get a valid diagnosis. 3.) Your Hemoglobin A1C - the number used to diagnosis Diabetes - is borderline elevated. Please discuss lifestyle changes, medication changes, and management with Dr. Still. Please exercise safe practices while doing your physically-intensive job. Should your symptoms return, please return to the nearest ED immediately. Referrals: Eli Still MD [Primary Care Provider] -
--- NOTE | 2018-07-15 09:09 | CARD ---
APPROVED REPORT Date of service: 07/14/2018 EKG Measurement Heart [id number] <Conclusion> Normal sinus rhythm Incomplete right bundle branch block Borderline ECG
== END 2018-07-14 14:00 | disposition home or self-care (01) ==
LOC: ED 08:18 → ERH 10:10 → 2RNO 15:02
PROVIDERS: ADMIT Internal Medicine; ATTEND Hospitalist
DX: R07.9 Chest pain, unspecified (principal); J44.9 Chronic obstructive pulmonary disease, unspecified; J45.20 Mild intermittent asthma, uncomplicated; F17.210 Nicotine dependence, cigarettes, uncomplicated; M17.0 Bilateral primary osteoarthritis of knee; I45.10 Unspecified right bundle-branch block; Z82.0 Family history of epilepsy and other diseases of the nervous system; Z82.49 Family history of ischemic heart disease and other diseases of the circulatory system; Z82.5 Family history of asthma and other chronic lower respiratory diseases
CPT/HCPCS: 36415; 71045; 80053; 80061; 81003; 82550; 83036; 83615; 83735; 83880; 84100; 84443; 84484; 85025; 85378; 85610; 85730; 93005; 93017; 99284; G0378; G0480; J1650

== ENCOUNTER 2018-08-26 07:11 | Emergency (ER) | payer SELFPAY ==
[2018-08-26 07:19] VITALS: BMI 28.0
[2018-08-26 07:35] VITALS: BP 138/87; PULSE 98; RESP 18; TEMP 98.5; O2SAT 97
--- NOTE | 2018-08-26 07:48 | ED PDOC ---
Arrival/HPI - General Chief Complaint: Trauma Time Seen by Provider: 08/26/18 07:25 Historian: Patient - History of Present Illness Narrative History of Present Illness (Text): 08/26/18 07:45 A 53 year old male, whose past medical history includes COPD and arthritis, presents to the emergency department with a complaint of left ankle and knee pain s/p mechanical fall. The patient states that he was stepping out of his house this morning, and the the snow was not paved causing him to slip down the stairs. The patient reports pain to the left knee and left ankle. He denies LOC or head trauma, fevers, chills, headache, dizziness, chest pain, shortness of breath, dyspnea on exertion, cough, abdominal pain, nausea, vomiting, diarrhea, back pain, neck pain, urinary/bowel changes, or any other complaint. PMD: Dr. Still Time/Duration: Prior to Arrival Symptom Onset: Sudden Symptom Course: Unchanged Activities at Onset: Rest, Light Context: Home Past Medical History - Provider Review Nursing Documentation Reviewed: Yes - Infectious Disease Hx of Infectious Diseases: None - Cardiac Hx Cardiac Disorders: No - Pulmonary Hx Chronic Obstructive Pulmonary Disease (COPD): Yes - Neurological Hx Neurological Disorder: No - HEENT Hx HEENT Disorder: Yes (eyeglasses) - Renal Hx Renal Disorder: No - Endocrine/Metabolic Hx Endocrine Disorders: No - Hematological/Oncological Hx Blood Disorders: No - Integumentary Hx Dermatological Disorder: No - Musculoskeletal/Rheumatological Hx Musculoskeletal Disorders: Yes Hx Arthritis: Yes (knees) - Gastrointestinal Hx Gastrointestinal Disorders: No - Genitourinary/Gynecological Hx Genitourinary Disorders: No - Psychiatric Hx Psychophysiologic Disorder: No Hx Substance Use: No - Surgical History Hx Musculoskeletal Surgery: Yes (right knee torn meniscus) - Suicidal Assessment Feels Threatened In Home Enviroment: No Family/Social History - Physician Review Nursing Documentation Reviewed: Yes Family/Social History: No Known Family HX Smoking Status: Light Smoker < 10 Cigarettes Daily Hx Alcohol Use: Yes (occasional) Hx Substance Use: No Hx Substance Use Treatment: No Allergies/Home Meds Allergies/Adverse Reactions: Allergies No Known Allergies Allergy (Verified 08/17/17 08:43) Review of Systems - Physician Review All systems were reviewed & negative as marked: Yes - Review of Systems Constitutional: absent: Fevers Respiratory: absent: SOB, Cough Cardiovascular: absent: Chest Pain, ALMODOVAR Gastrointestinal: absent: Abdominal Pain, Stool Changes, Diarrhea, Nausea, Vomiting Genitourinary Male: absent: Urinary Output Changes Musculoskeletal: Other (Left knee and ankle pain.). absent: Back Pain, Neck Pain Neurological: absent: Headache, Dizziness Physical Exam Vital Signs Reviewed: Yes Vital Signs Temp Pulse Resp BP Pulse Ox 08/26/18 07:34 98.5 F 98 H 18 138/87 97 Temperature: Afebrile Blood Pressure: Normal Pulse: Tachycardic Respiratory Rate: Normal Appearance: Positive for: Well-Appearing, Non-Toxic, Comfortable Pain Distress: None Mental Status: Positive for: Alert and Oriented X 3 - Systems Exam Head: Present: Atraumatic, Normocephalic Pupils: Present: PERRL Extroacular Muscles: Present: EOMI Conjunctiva: Present: Normal Mouth: Present: Moist Mucous Membranes Neck: Present: Normal Range of Motion Respiratory/Chest: Present: Clear to Auscultation, Good Air Exchange. No: Respiratory Distress, Accessory Muscle Use Cardiovascular: Present: Regular Rate and Rhythm, Normal S1, S2. No: Murmurs Abdomen: No: Tenderness, Distention, Peritoneal Signs Back: Present: Normal Inspection Upper Extremity: Present: Normal Inspection. No: Cyanosis, Edema Lower Extremity: Present: Tenderness (Tenderness to medial aspect of left knee. ), Swelling (Swelling to left ankle. Swelling to left knee. ). No: Normal ROM (Limited ROM of left knee secondary to pain. Normal ROM of left ankle. ) Neurological: Present: GCS=15, CN II-XII Intact, Speech Normal Skin: Present: Warm, Dry, Normal Color. No: Rashes Psychiatric: Present: Alert, Oriented x 3, Normal Insight, Normal Concentration Medical Decision Making ED Course and Treatment: 08/26/18 07:50 Impression: A 53 year old male presents to the emergency department with a complaint of left ankle and knee pain s/p slip and fall this morning. Differential Diagnosis included but are not limited to: r/o fracture Plan: -- Left Ankle X- Ray -- Left Knee X-Ray -- Motrin -- Reassess and disposition Prior Visits: Notes and results from previous visits were reviewed. Progress Notes: 08/26/18 08:14: Left Knee and Left Ankle X- Rays read and interpreted by me show no fracture. 08/26/18 08:17 Patient is in no acute distress. X- rays read and show no fracture. Patient placed in a Knee Immobilizer and Lower leg posterior splint by Mayra HSIEH with no complications. Neurovascularly intact on reevaluation. Crutch instructions given. I have discussed the results and plan with the patient, who expresses understanding. Patient in agreement with plan to be discharged home. He understands he needs to follow up with Orthopedics. Patient is stable for discha rge. Patient was instructed to follow up with physician or return if symptoms worsen or new concerning symptoms arise. - RAD Interpretation Radiology Orders: 08/26/18 07:32 ANKLE LEFT 3 VIEWS ROUTINE [RAD] Stat KNEE LEFT 2 VIEWS (AP & LAT) [RAD] Stat - Medication Orders Current Medication Orders: Discontinued Medications Ibuprofen (Motrin Tab) 600 mg PO STAT STA Stop: 08/26/18 07:33 Last Admin: 08/26/18 07:37 Dose: 600 mg MAR Pain/Vitals Document 08/26/18 07:37 SRE (Rec: 08/26/18 07:39 SRE [id number]) Pain Reassessment Is This A Pain ReAssessment? Yes Sleep Is patient sleeping during reassessment? No Presence of Pain Presence of Pain Yes Location Left, Right or Bilateral Left Pain Location Body Site Knee Intensity 10 - Scribe Statement The provider has reviewed the documentation as recorded by the Dennisibcindy Moreland Provider Scribe Attestation: All medical record entries made by the Scribe were at my direction and personally dictated by me. I have reviewed the chart and agree that the record accurately reflects my personal performance of the history, physical exam, medical decision making, and the department course for this patient. I have also personally directed, reviewed, and agree with the discharge instructions and disposition. Disposition/Present on Arrival - Present on Arrival Any Indicators Present on Arrival: No History of DVT/PE: No History of Uncontrolled Diabetes: No Urinary Catheter: No History of Decub. Ulcer: No History Surgical Site Infection Following: None - Disposition Have Diagnosis and Disposition been Completed?: Yes Diagnosis: Knee sprain, Ankle sprain Disposition: HOME/ ROUTINE Disposition Time: 08:24 Patient Plan: Discharge Patient Problems: Current Active Problems Problem Status Onset Knee sprain Acute Ankle sprain Acute Condition: IMPROVED Discharge Instructions (ExitCare): Ankle Sprain, Knee Sprain (DC) Additional Instructions: PETEY MONTGOMERY, thank you for letting us take care of you today. Your provider was Chepe Astudillo DO and you were treated for Ankle and Knee Sprain. The emergency medical care you received today was directed at your acute symptoms. If you were prescribed any medication, please fill it and take as directed. It may take several days for your symptoms to resolve. Return to the Emergency Department if your symptoms worsen, do not improve, or if you have any other problems. Please contact your doctor or call one of the physicians/clinics you have been referred to that are listed on the Patient Visit Information form that is included in your discharge packet. Bring any paperwork you were given at discharge with you along with any medications you are taking to your follow up visit. Our treatment cannot replace ongoing medical care by a primary care provider outside of the emergency department. Thank you for allowing the [facility] team to be part of your care today. If you had an X-Ray or CT scan: A Radiologist will review the ED reading if any change in treatment is needed we will contact you. If you had a blood, urine, or wound culture: It will take several days for the results, if any change in treatment is needed we will contact you. If you had an STI test: It will take 48 hours for the results. Please call after 1 week if you have not heard back. Prescriptions: Ibuprofen [Motrin] 600 mg PO Q6 PRN #30 tab PRN Reason: Pain, Moderate (4-7) Referrals: Eli Still MD [Staff Provider] - Follow up with primary Tanya Dacosta MD [Staff Provider] - Follow up with primary Forms: [employer] (Emirati), WORK NOTE
--- NOTE | 2018-08-26 10:32 | RAD ---
Date of service: 08/26/2018 PROCEDURE: Left Ankle Radiographs. HISTORY: pain s/p fall r/o fx COMPARISON: None available. FINDINGS: BONES: Normal. No fracture. JOINTS: Normal. No osteoarthritis. Ankle mortise maintained. Talar dome intact SOFT TISSUES: Normal. OTHER FINDINGS: None. IMPRESSION: Normal left ankle radiographs.
--- NOTE | 2018-08-26 10:33 | RAD ---
Date of service: 08/26/2018 PROCEDURE: Left Knee Radiographs. HISTORY: Pain. COMPARISON: None. FINDINGS: BONES: Normal. No fracture. JOINTS: Normal. No osteoarthritis. JOINT EFFUSION: None. OTHER FINDINGS: None. IMPRESSION: No evidence of fracture
== END 2018-08-26 08:51 | disposition home or self-care (01) ==
LOC: ED 07:11
DX: S83.92XA Sprain of unspecified site of left knee, initial encounter (principal); S93.402A Sprain of unspecified ligament of left ankle, initial encounter; W10.9XXA Fall (on) (from) unspecified stairs and steps, initial encounter

== ENCOUNTER 2018-10-08 12:39 | Outpatient (CLI) | payer MEDICAID | END 2018-10-08 12:40 | disposition home or self-care (01) | LOC: RAD 12:39 ==

== ENCOUNTER 2018-11-07 12:50 | Outpatient (CLI) | payer MEDICAID | END 2018-11-07 12:51 | disposition home or self-care (01) | LOC: RAD 12:50 ==